=== PATIENT | female | born 1970 | race Caucasian/White ===

== ENCOUNTER → 2017-08-14 | Outpatient (CLI) | payer BC ==
--- NOTE | 2017-08-14 14:04 | WOMENS IMAGING REPORT ---
EXAM DESCRIPTION: BILAT SCREENING MAMMO W/CAD COMPLETED DATE/TIME: 08/14/2017 1:33 pm REASON FOR STUDY: ROUTINE SCREENING; Z12.31 Z12.31 ENCNTR SCREEN MAMMOGRAM FOR MALIGNANT NEOPLASM O F ALEX COMPARISON: 07/24/2016 and 06/26/2015. TECHNIQUE: Standard craniocaudal and mediolateral oblique views of each breast recorded using digita l acquisition. LIMITATIONS: None. FINDINGS: No masses, calcifications or architectural distortion. No areas of suspicion. Read with the assistance of CAD. .[facility] - R2 Cenova Version 1.3 .[facility] - R2 Cenova Version 1.3 .[facility] - R2 Cenova Version 2.4 .[facility] [place] - R2 Cenova Version 2.4 .[facility] - R2 Pantograph Operator Version 9.2 IMPRESSION: NORMAL MAMMOGRAM. BIRADS 1. BREAST DENSITY: b. There are scattered areas of fibroglandular density. BIRAD: 1 NEGATIVE RECOMMENDATION: ROUTINE SCREENING COMMENT: The patient has been notified of the results by letter per MQSA requirements. Additional no tification policies are in place for contacting patient with suspicious or incomplete findings. Quality ID #225: The [employer] recommends an annual screening mammogram for women aged 40 years or over. This facility utilizes a reminder system to ensure that all patients receive reminder letters, and/or direct phone calls for appointments. This includes reminders for routine scr eening mammograms, diagnostic mammograms, or other Breast Imaging Interventions when appropriate. Th is patient will be placed in the appropriate reminder system. The [employer] (ACR) has developed recommendations for screening MRI of the breast s in certain patient populations, to be used in conjunction with mammography. Breast MRI surveillanc e may be appropriate for women with more than 20% lifetime risk of developing breast cancer as deter mined by genetic testing, significant family history of the disease, or history of mantle radiation f or Hodgkins Disease. ACR Practice Guidelines 2008. TECHNICAL DOCUMENTATION: FINDING NUMBER: (1) ASSESSMENT: (1) JOB ID: [id number] [employer]- All Rights Reserved
== END ==
LOC: WI 13:13
PROVIDERS: ATTEND Physician Assistant
DX: Z12.31 Encounter for screening mammogram for malignant neoplasm of breast (principal)
CPT/HCPCS: 77067; G0202

== ENCOUNTER 2017-11-11 05:20 | Day surgery (SDC) | payer BC, OTHER ==
--- NOTE | 2017-11-04 09:27 | RADIOLOGY REPORT (SQ) ---
EXAM DESCRIPTION: CHEST PA/LATERAL COMPLETED DATE/TIME: 11/04/2017 9:08 am REASON FOR STUDY: PRE OP COMPARISON: 08/03/2016 EXAM PARAMETERS: NUMBER OF VIEWS: two views TECHNIQUE: Digital Frontal and Lateral radiographic views of the chest acquired. RADIATION DOSE: NA LIMITATIONS: none FINDINGS: LUNGS AND PLEURA: No opacities, masses or pneumothorax. No pleural effusion. MEDIASTINUM AND HILAR STRUCTURES: No masses or contour abnormalities. HEART AND VASCULAR STRUCTURES: Heart normal size. No evidence for failure. BONES: No acute findings. HARDWARE: None in the chest. OTHER: No other significant finding. IMPRESSION: NO SIGNIFICANT RADIOGRAPHIC FINDING IN THE CHEST. TECHNICAL DOCUMENTATION: JOB ID: [id number] [employer]- All Rights Reserved
[2017-11-04 09:33] LABS: ABSOLUTE BASOPHILS # (AUTO) 0.1 10^3/uL (0.0-0.2); ABSOLUTE EOSINOPHILS # (AUTO) 0.1 10^3/uL (0.0-0.6); ABSOLUTE LYMPHOCYTES (AUTO) 1.5 10^3/uL (0.5-4.7); ABSOLUTE MONOCYTES (AUTO) 0.5 10^3/uL (0.1-1.4); ABSOLUTE NEUT (AUTO) 2.8 10^3/uL (1.7-8.2); APPEARANCE,URINE SLIGHTLY-CLOUDY; BASOPHILS % (AUTO) 1.3 % (0-2); BILIRUBIN,URINE NEGATIVE (NEGATIVE); COLOR,URINE YELLOW; EOSINOPHILS % (AUTO) 2.2 % (0-6); GLUCOSE, URINE NEGATIVE (NEGATIVE); HEMATOCRIT 42.2 % (36.0-47.0); HEMOGLOBIN 14.6 g/dL (12.0-15.5); KETONES,URINE NEGATIVE (NEGATIVE); LEUKOCYTE ESTERASE,URINE NEGATIVE (NEGATIVE); LYMPHOCYTES % (AUTO) 30.4 % (13-45); MEAN CORPUSCULAR HEMOGLOBIN 29.8 pg (27.0-33.4); MEAN CORPUSCULAR HGB CONC 34.5 g/dL (32.0-36.0); MEAN CORPUSCULAR VOLUME 86 fl (80-97); MONOCYTES % (AUTO) 9.6 % (3-13); NITRITE,URINE NEGATIVE (NEGATIVE); PLATELET COUNT 234 10^3/uL (150-450); PROTEIN,URINE NEGATIVE (NEGATIVE); SEGMENTED NEUTROPHILS % (AUTO) 56.5 % (42-78); TOTAL CELLS COUNTED % (AUTO) 100 %; URINE SPECIFIC GRAVITY 1.016; UROBILINOGEN,URINE NEGATIVE mg/dL (<2.0); WHITE BLOOD COUNT 4.9 10^3/uL (4.0-10.5)
[2017-11-04 10:00] LABS: ANION GAP 10 (5-19); BLOOD UREA NITROGEN 18 mg/dL (7-20); CALCIUM 9.1 mg/dL (8.4-10.2); CARBON DIOXIDE 29 mmol/L (22-30); CHLORIDE 105 mmol/L (98-107); GLUCOSE 58 mg/dL (75-110); POTASSIUM 3.9 mmol/L (3.6-5.0); SODIUM 144.4 mmol/L (137-145)
--- NOTE | 2017-11-04 15:16 | EKG REPORT ---
SEVERITY:- NORMAL ECG - SINUS RHYTHM : Confirmed by: Jake Alvarado MD 04-Nov-2017 15:16:09
[~2017-11-11 05:20] MED LIST: CLINDAMYCIN 600 MG/D5W RTU 600 MG/50 ML RTUPB IV PRN; LACTATED RINGERS 1000 ML IV PRN; LIDOCAINE 0.5% INJ-PF (5 MG/ML) 50 ML SDV SUBCUT PRN
[2017-11-11] MEDS ORDERED: BUPIVACAINE HCL 0.5 % INJ/PF 30 ML SDV ONE (06:34)
[2017-11-11] MEDS ORDERED: FENTANYL CITRATE INJ/PF 100 MCG/2 ML AMPUL ONE (06:50)
[2017-11-11] MEDS ORDERED: PROPOFOL INJ 200 MG/20 ML VIAL IV ONE (06:50)
[2017-11-11] MEDS ORDERED: ACETAMINOPHEN 100 ML IV ONE (06:50)
[2017-11-11] MEDS ORDERED: MIDAZOLAM 2 MG/2 ML INJ ONE (06:50)
[2017-11-11] MEDS ORDERED: DEXAMETHASONE SOD PHOSPHATE INJ 4 MG/1 ML VIAL ONE (06:57)
[2017-11-11] MEDS ORDERED: ONDANSETRON HCL INJ/PF 4 MG/2 ML SDV ONE (06:57)
[2017-11-11] MEDS ORDERED: LIDOCAINE 1% INJ-PF (10 MG/ML) 30 ML SDV ONE (07:09)
[2017-11-11] MEDS ORDERED: MORPHINE SULFATE 10 MG/ML INJ IV PRN (08:13)
[2017-11-11] MEDS ORDERED: OXYCODONE-ACETAMINOPHEN 5-325 MG TABLET PO PRN (08:13)
[2017-11-11] MEDS ORDERED: ONDANSETRON HCL INJ/PF 4 MG/2 ML SDV IV PRN (08:13)
--- NOTE | 2017-11-11 08:23 | PDOC DISCHARGE SUMMARY ---
Discharge Summary (SDC) - Discharge Final Diagnosis: Right Wrist Dequervains Date of Surgery: 11/11/17 Discharge Date: 11/11/17 Condition: Good Treatment or Instructions: Schedule Follow Up w/ Dr. Eddie Syed @ [facility] to be seen in 10-14 days or as scheduled [place]: [place]: [place]: May remove dressing on postop day #3, keep incision covered and dry. Ice and elevate May begin finger range of motion attempting to make full fist. Stool softener of choice when on pain medication. Prescriptions: Oxycodone HCl/Acetaminophen [Percocet 5-325 mg Tablet] 1 - 2 tab PO ASDIR PRN # 15 tablet PRN Reason: Referrals: MURRAY BALBUENA PA-C [Primary Care Provider] - Discharge Diet: As Tolerated Respiratory Treatments at Home: Deep Breathing/Coughing, Incentive Spirometer Discharge Activity: No Lifting Over 10 Pounds, No Lifting/Push/Pulling Report the Following to Your Physician Immediately: Fever over 101 Degrees, Unusual Bleeding, Redness, Swelling, Warmth, Increased Soreness
[2017-11-11] MEDS ORDERED: DIPHENHYDRAMINE HCL 50 MG/ML VIAL IV PRN (08:24)
[2017-11-11] MEDS ORDERED: PROMETHAZINE HCL INJ 25 MG/1 ML VIAL IV PRN ×2 (08:24)
[2017-11-11] MEDS: FENTANYL CITRATE INJ/PF 100 MCG/2 ML AMPUL ONE ×2 (08:24→08:29)
[2017-11-11] MEDS ORDERED: MEPERIDINE HCL/PF INJ 25 MG/1 ML DISP.SYRIN IV PRN (08:24)
[2017-11-11] MEDS ORDERED: FENTANYL CITRATE INJ/PF 100 MCG/2 ML AMPUL IV PRN ×3 (08:24)
--- NOTE | 2017-11-11 08:27 | Operative Report ---
Operative Report DATE OF SURGERY: 11/11/17 PREOPERATIVE DIAGNOSIS: Right de Quervain's tenosynovitis POSTOPERATIVE DIAGNOSIS: Same OPERATION: 1. Right first dorsal compartment release. 2. Tenosynovectomy right wrist first dorsal compartment SURGEON: LARISSA ARAYA ANESTHESIA: LMAC COMPLICATIONS: None ESTIMATED BLOOD LOSS: Minima PROCEDURE: Indication for above procedure: 47-year-old female with history of de Quervain's tenosynovitis. We attempted conservative measures including immobilization and injections without resolution of patient's symptoms. At that point the decision was made to proceed with operative intervention. Risks and benefits were explained to the patient verbalized understanding consented for the procedure. Procedure In Detail: Patient was seen and evaluated in the preoperative holding area. The RIGHT upper extremity was initialized and marked. Patient received 600 mg of clindamycin IV for bacterial prophylaxis. Patient was taken back to the operative room where transferred to the operative table and placed under MAC anesthesia. Once they were adequately anesthetized and a nonsterile tourniquet was placed on the upper extremity. A surgical team debriefing was performed ensuring all instrumentation was available, the surgical procedure was discussed with possible concerns reviewed. The upper extremity was prepped with chlorhexidine and alcohol and draped in a sterile fashion. A timeout was done identifying correct patient, procedure and extremity everyone in attendance agree with this and verbalized no concerns. A 6 mL mixture of 50:50 0.5% Marcaine and 1% lidocaine plain was injected. The extremity was exsanguinated the tourniquet was inflated to 200 mmHg. A longitudinal skin incision was centered over the first dorsal arm at the level of the radial styloid. Careful dissection was done through the soft tissues the superficial branch of the radial nerve was identified and retracted with the skin. There is a small vein overlying the first dorsal compartment which was carefully retracted but not disrupted. Any peripheral vasculature was coagulated with bipolar cautery. I then identified the first dorsal compartment. The first dorsal compartment was incised along its dorsal third to avoid postoperative volar subluxation. Within the first dorsal compartment thee was moderate tenosynovitis and thus a partial tenosynovectomy was performed. The APL and EPB tendons were identified. There is no evidence of a sub-compartment of the EDB however there was 4 tendon slips of the APL. I ensured complete release the first dorsal compartment distally and proximally. The wrist was then placed through range of motion to ensure no subluxation of the first dorsal compartment tendons. The wound was then irrigated with normal saline. And the tourniquet was deflated. Any remaining peripheral vasculature was coagulated with bipolar cautery. I then proceeded with closure utilizing a running subcuticular 4-0 Monocryl suture which was reinforced with Dermabond and Steri-Strips. Wound was dressed with a soft dressing. Sponge counts, instrument counts, needle counts counts were correct. Patient was then awoken from anesthesia. Transferred from the operating room table to the operating room stretcher. There was no intraoperative complications patient tolerated procedure well stable to PACU. Postoperative plan: Patient will follow-up in 2 weeks for wound check.
[2017-11-11 10:21] VITALS: BP 143/84
== END 2017-11-11 10:15 | disposition home or self-care (01) ==
LOC: OROUT 05:20
PROVIDERS: ATTEND Orthopaedic Surgery
PROC: 0LB50ZZ Excision of Right Lower Arm and Wrist Tendon, Open Approach (ICD-10-PCS; 2017-11-11)
PROC: 0LN50ZZ Release Right Lower Arm and Wrist Tendon, Open Approach (ICD-10-PCS; principal; 2017-11-11 07:30)
DX: M65.4 Radial styloid tenosynovitis [de Quervain] (principal); K21.9 Gastro-esophageal reflux disease without esophagitis; I10 Essential (primary) hypertension; K44.9 Diaphragmatic hernia without obstruction or gangrene; E66.01 Morbid (severe) obesity due to excess calories; Z79.899 Other long term (current) drug therapy; Z88.5 Allergy status to narcotic agent; Z88.0 Allergy status to penicillin; Z68.25 Body mass index [BMI] 25.0-25.9, adult
CPT/HCPCS: 93005; 36415; 82962; 85025; 80048; 81001; 71020; 93010; 25116; J2250; J1100; J3010; J3490; J2405; J2704; J0131; 1810

== ENCOUNTER 2018-06-10 06:11 | Day surgery (SDC) | payer BC, OTHER ==
[2018-06-05 12:53] LABS: HEMATOCRIT 43.9 % (36.0-47.0); HEMOGLOBIN 14.7 g/dL (12.0-15.5); MEAN CORPUSCULAR HEMOGLOBIN 29.1 pg (27.0-33.4); MEAN CORPUSCULAR HGB CONC 33.4 g/dL (32.0-36.0); MEAN CORPUSCULAR VOLUME 87 fl (80-97); PLATELET COUNT 272 10^3/uL (150-450); RED BLOOD COUNT 5.03 10^6/uL (3.72-5.28); RED CELL DISTRIBUTION WIDTH 13.2 % (11.5-14.0); WHITE BLOOD COUNT 6.9 10^3/uL (4.0-10.5)
--- NOTE | 2018-06-05 22:15 | EKG REPORT ---
SEVERITY:- NORMAL ECG - SINUS RHYTHM : Confirmed by: Ting Ga 05-Jun-2018 22:15:01
[2018-06-10] MEDS ORDERED: PROPOFOL INJ 200 MG/20 ML VIAL IV ONE (09:43)
[2018-06-10] MEDS ORDERED: FENTANYL CITRATE INJ/PF 250 MCG/5 ML AMPULE ONE (09:43)
[2018-06-10] MEDS ORDERED: ACETAMINOPHEN 1,000 MG/100 ML RTUPB IV ONE (09:43)
[2018-06-10] MEDS ORDERED: HYDROMORPHONE HCL INJ/PF 2 MG/ML AMPULE ONE (09:43)
[2018-06-10] MEDS ORDERED: MIDAZOLAM 2 MG/2 ML INJ ONE (09:43)
[2018-06-10] MEDS ORDERED: BACITRACIN INJ 50,000 UNIT VIAL ONE (09:52)
[2018-06-10] MEDS ORDERED: BUPIVACAINE HCL 0.5 % INJ/PF 30 ML SDV ONE (09:52)
[2018-06-10] MEDS ORDERED: BUPIVACAINE INJ/PF LIPOSOME/PF 266 MG/20 ML SDV ONE (09:53)
[2018-06-10] MEDS ORDERED: MEPERIDINE HCL/PF INJ 25 MG/1 ML DISP.SYRIN IV PRN (10:48)
[2018-06-10] MEDS ORDERED: FENTANYL CITRATE INJ/PF 100 MCG/2 ML AMPUL IV PRN ×3 (10:48)
[2018-06-10] MEDS ORDERED: MORPHINE SULFATE 10 MG/ML INJ IV PRN (10:48)
[2018-06-10] MEDS ORDERED: PROMETHAZINE HCL INJ 25 MG/1 ML VIAL IV PRN (10:48)
[2018-06-10] MEDS ORDERED: DIPHENHYDRAMINE HCL 50 MG/ML VIAL IV PRN ×2 (10:48→12:55)
[2018-06-10] MEDS: FENTANYL CITRATE INJ/PF 100 MCG/2 ML AMPUL ONE ×2 (12:04→12:15)
[2018-06-10] MEDS ORDERED: PROMETHAZINE HCL INJ 25 MG/1 ML VIAL ONE (12:08)
--- NOTE | 2018-06-10 12:17 | RADIOLOGY REPORT (SQ) ---
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 FLUOROSCOPY TIME: 0.1 minute 3 images saved to PACS. TECHNIQUE: Intra-operative images acquired during surgical procedure to evaluate progress. NUMBER OF IMAGES: 3 images LIMITATIONS: None. FINDINGS: Fluoroscopic images were obtained during performance of a lumbar discectomy. Orthopedic h ardware is identified in position. Please refer to the surgeon's operative report for additional inf ormation IMPRESSION: IMAGE(S) OBTAINED DURING PROCEDURE. COMMENT: Quality ID [id number]: Final reports for procedures using fluoroscopy that document radiation exp osure indices, or exposure time and number of fluorographic images (if radiation exposure indices are not available) Please consult full operative report of the attending physician for description of the procedure. TECHNICAL DOCUMENTATION: JOB ID: [id number] [employer]- All Rights Reserved Reading location - IP/workstation name: [facility]
--- NOTE | 2018-06-10 12:18 | RADIOLOGY REPORT (SQ) ---
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 IMPRESSION: Please see combined report for performance of procedure and radiologic supervision and i nterpretation. Reading location - IP/workstation name: [email or web address]
--- NOTE | 2018-06-10 12:35 | OPERATIVE REPORT E ---
Operative Report NAME: ANDRÉS ALVAREZ : 1970 AGE: 47Y DATE OF SURGERY: 06/10/2018 ROOM: ATTENDING PHYSICIAN: NEELIMA SALDIVAR M.D. GUEST RELATIONS AGENT: Alon Mcmahan, Physician Deliverer Outside PREOPERATIVE DIAGNOSES: 1. L3-L4 stenosis and radiculitis 2. Degenerative disk disease. 3. Back pain. POSTOPERATIVE DIAGNOSES: 1. L3-L4 stenosis and radiculitis 2. Degenerative disk disease. 3. Back pain. PROCEDURES: 1. L3-4 central decompression that is a partial L4 laminectomy. 2. L3-4 right-sided foraminotomy. ANESTHESIA: General endotracheal intubation. ESTIMATED BLOOD LOSS: 75 mL. INDICATIONS: The patient is a 47-year-old female who developed right-sided radiculitis and back pain and difficulty with ambulation. After failure of conservative management including injections and physical therapy, patient wished to pursue the surgical intervention. I discussed with her risks, indications, alternatives, including the risk of infection, bleeding, damage to nerves or blood vessels, the risk of dural pain or spinal headaches, the risk of continued back pain, the risk of adjacent level arthritis, as well as recurrent disk herniation or radicular symptoms as well as developing instability and spondylolisthesis. The patient understood these risks and wished to pursue surgical intervention. OPERATIVE TECHNIQUE: The patient was brought into the room, placed under anesthesia, received 600 mg of clindamycin with a 1 hour of cut time, had SCDs and warm blanket placed on her. A surgical timeout was performed. After positioning her in the prone position on the radiolucent OSI table with a Dima frame, the Dima frame was turned up to open up the interspaces. The old incision was marked and the midline was marked as well as lateral C-arm fluoroscopy was used to verify the L3-4 level. Upon verification of that level, the skin was marked appropriately. After completion of prepping and draping, attention was then paid to carry out a longitudinal incision measuring approximately 1.5 inches. Dissection was carried down sharply. Dissection was carried down through the skin. Electrocautery was used to obtain hemostasis. The lumbodorsal fascia was identified and incised on both sides of the spinous processes at L3-4. Dissection was carried down to the lamina of L3-4 on the right and the left. A Yeison was placed in the posterior interspace at L3-4. Upon marking that level and obtaining a lateral C-arm image to verify that level, then attention was paid to carrying out the resection of the spinous process and the partial laminectomy. The spinous process of L3 was resected and then the microscope was brought in under the microscope and through the assistance of Alon Mcmahan. The elpidio and the Kerrison's were used to carry out a partial laminectomy decompressing the facet joints and the lateral spurs bilaterally. Attention was paid more to the right side. Dissection was carried out only down to the lateral recess where significant ligamentum flavum hypertrophy and spurs, especially at the upper part of the facet joint are noted. Those are resected and the dura is felt to expand and fill the space. The dura is retracted medially, exposing the right side at L3-4 disk space and noting no significant disk herniation. No annulotomy and no diskectomy is performed at this time. After that, the remainder of the lateral recess was decompressed bilaterally on the right and on the left. Small epidural bleeders were coagulated using bipolar electrocautery and then a Valsalva maneuver was performed by Anesthesia noting no leakage of cerebrospinal fluid or epidural bleeders, noted the wound had been irrigated with a liter of bacitracin irrigation and the fascia was then reapproximated with 0 Vicryl, subcu with 2-0 Vicryl. The deep and superficial soft tissues were infiltrated with 0.5% bupivacaine plain as well 20 mL mixed with 20 mL of 1.3% Exparel and injected at the deep and superficial soft tissues. The subtalar tissue was closed with 3-0 Monocryl in the running fashion. Wounds were dressed in Benzoin, Steri-Strips, 4 x 4, and tape. Estimated blood loss 75 mL. The patient's condition is stable. The patient was then brought to the supine position, extubated, and brought to recovery room. Please note this procedure could not have been done without the assistance of Alon Mcmahan, Physician Deliverer Outside. DICTATING PHYSICIAN: NEELIMA SALDIVAR M.D. [id number] PHY#: [id number] ID: [id number] JOB#: [id number] ACCT: [id number] cc:NEELIMA SALDIVAR M.D. >
[2018-06-10] MEDS ORDERED: DIAZEPAM 5 MG TABLET PO PRN (12:44)
[2018-06-10] MEDS ORDERED: ONDANSETRON HCL INJ/PF 4 MG/2 ML SDV IV PRN (12:44)
[2018-06-10] MEDS ORDERED: METHOCARBAMOL 750 MG TABLET PO PRN (12:45)
[2018-06-10] MEDS ORDERED: ACETAMINOPHEN 325 MG TABLET PO PRN (12:49)
[2018-06-10] MEDS ORDERED: HYDROCODONE/ACETAMINOPHEN 5-325 MG TABLET PO PRN (12:51)
[2018-06-10] MEDS ORDERED: OXYCODONE-ACETAMINOPHEN 5-325 MG TABLET PO PRN (12:52)
[2018-06-10] MEDS ORDERED: ACETAMINOPHEN SOLN 325 MG/10.15 ML UDCUP PO PRN (12:53)
[2018-06-10] MEDS ORDERED: ACETAMINOPHEN 650 MG SUPP.RECT PR PRN (12:53)
[2018-06-10] MEDS ORDERED: DIPHENHYDRAMINE HCL 25 MG CAPSULE PO PRN (12:54)
[2018-06-10] MEDS ORDERED: METHOCARBAMOL 1,000 MG in DEXTROSE 5%-WATER 100 ML IV ONE (13:30)
[2018-06-10] MEDS ORDERED: NEOSTIGMINE METHYLSULFATE 10 MG/10 ML VIAL ONE (14:41)
[2018-06-10] MEDS ORDERED: ROCURONIUM BROMIDE INJ 50 MG/5 ML VIAL IV ONE (14:41)
[2018-06-10] MEDS ORDERED: GLYCOPYRROLATE 1 MG/5 ML SYRINGE ONE (14:41)
[2018-06-10] MEDS ORDERED: LIDOCAINE 2% INJ-PF (20 MG/ML) 2 ML AMPUL ONE (14:41)
[2018-06-10] MEDS ORDERED: ONDANSETRON HCL INJ/PF 4 MG/2 ML SDV ONE (14:41)
[2018-06-10 15:11] VITALS: BP 103/57
== END 2018-06-10 15:00 | disposition home or self-care (01) ==
LOC: OROUT 06:11
PROVIDERS: ATTEND Orthopaedic Surgery
DX: M51.16 Intervertebral disc disorders with radiculopathy, lumbar region (principal); M51.36 Other intervertebral disc degeneration, lumbar region; M54.5 Low back pain; M48.061 Spinal stenosis, lumbar region without neurogenic claudication; I10 Essential (primary) hypertension; Z79.899 Other long term (current) drug therapy; Z88.0 Allergy status to penicillin; Z88.5 Allergy status to narcotic agent
CPT/HCPCS: 93005; 93010; 36415 ×2; 84132; 85027; 72020; 63047; J2250; J3490 ×6; J3010 ×2; J2800; J2550; J2405; J2704; J0131; C9290; 630; J1170